=== PATIENT | male | born 1980 | race Caucasian/White ===

== ENCOUNTER 2016-09-26 22:48 | Emergency (ER) | payer OTHER ==
[2016-09-26 23:01] VITALS: BP 128/76; TEMP 102.9; BMI 43.7
[2016-09-26] MEDS ORDERED: TORADOL IM STA (23:11)
[2016-09-26] MEDS ORDERED: DECADRON 4 MG/ML SDV IM STA (23:11)
[2016-09-26 23:35] LABS: BASOPHILS % (AUTO) 0.3 % (0.0-3.0); HEMATOCRIT 40.6 % (42.0-52.0); IMMATURE GRANULOCYTE % (AUTO) 0.4 % (0.0-5.0); LYMPHOCYTES # (AUTO) 1.7 K/uL (0.60-3.4); LYMPHOCYTES % (AUTO) 10.9 (10.0-50.0); MEAN CORPUSCULAR HGB CONC 34.5 (31.8-35.4); MEAN CORPUSCULAR VOLUME 86.9 fl (80.0-94.0); MONOCYTES # (AUTO) 1.7 K/uL (0.4-2.0); MONOCYTES % (AUTO) 10.7 (0-10); NEUTROPHILS # (AUTO) 12.3 K/ul (2.0-6.9); NEUTROPHILS % (AUTO) 77.7; PLATELET COUNT 169 10^3/uL (140-440); RED BLOOD COUNT 4.67 10^6/ul (4.70-6.10); WHITE BLOOD COUNT 15.75 K/ul (4.2-10.2)
[2016-09-26 23:37] LABS: FLU INTERNAL QC INTERNAL QC VALID; RAPID FLU A NEGATIVE (NEGATIVE); RAPID FLU B NEGATIVE (NEGATIVE)
--- NOTE | 2016-09-26 23:47 | CT ---
EXAM: CT head without contrast. HISTORY: Headache. PROCEDURE: Contiguous axial CT images of the head without contrast. FINDINGS: The ventricles and basal cisterns are normal in size and configuration. No evidence of ma ss or midline shift. No intracranial hemorrhage or evidence of large vessel infarct. No extra-axia l fluid collection. There are mucous retention cysts in the paranasal sinuses. The mastoid air irvin ls are well-aerated. Impression: Negative CT of the head. Paranasal sinusitis.
[2016-09-26 23:56] LABS: ALBUMIN 3.8 g/dL (3.4-5.0); ALBUMIN/GLOBULIN RATIO 1.06; ANION GAP 12.8; BILIRUBIN,TOTAL 1.34 mg/dL (0.00-1.20); BUN/CREATININE RATIO 7.51; CALCIUM 8.9 mg/dL (8.2-10.2); CREATININE 1.33 mg/dL (0.60-1.10); POTASSIUM 3.8 mmol/L (3.5-5.1); TOTAL PROTEIN 7.4 g/dL (6.4-8.2)
--- NOTE | 2016-09-27 00:01 | DI ---
EXAM: Chest, two views, 09/26/2016 HISTORY: Cough COMPARISON: 04/23/2016 FINDINGS / IMPRESSION: Cardiomediastinal contours appear at the upper limits of normal. Basilar in terstitial opacities may represent atelectasis or pneumonitis. No focal pulmonary consolidation, ef fusion or pneumothorax.
--- NOTE | 2016-09-27 00:01 | ED.PDOC ---
General ED Provider: Dr. HALEY CARBAJAL Chief Complaint: Fever Stated Complaint: SINUS HEADACHE, SORE THROAT, SOME COUGHING, AND ALOS HAS FEVER Time Seen by Physician: 23:59 Mode of Arrival: Walk-In Information Source: Patient Primary Care Provider: SCOT PATEL Nursing and Triage Documentation Reviewed and Agree: Yes Miscellaneous Complaint Exam - Febrile Illness/Adult Complaint/Exam Symptoms Are: Still present Timing: Constant Episodes Lasting: Hours Initial Severity: Moderate Current Severity: Moderate Aggravating: Reports: None Alleviating: Reports: None Associated Signs and Symptoms: Reports: Headache, Cough, Sore throat, Chills Pseudomonas Risk Factors: Reports: None Serious Bacterial Infection Risk Factors: Reports: None Current Antibiotic Use: No Differential Diagnoses: Pneumonia, Sepsis, Viremia Review of Systems - Review Of Systems Constitutional: Reports: Fever, Malaise Eyes: Reports: No symptoms Ears, Nose, Mouth, Throat: Reports: Nose discharge, Throat pain Respiratory: Reports: Cough Cardiac: Reports: No symptoms GI: Reports: No symptoms : Reports: No symptoms Musculoskeletal: Reports: No symptoms Skin: Reports: No symptoms Neurological: Reports: No symptoms Endocrine: Reports: No symptoms Hematologic/Lymphatic: Reports: No symptoms All Other Systems: Reviewed and Negative Past Medical History - Past Medical History Previously Healthy: Yes Endocrine: Reports: None Cardiovascular: Reports: None Respiratory: Reports: None Hematological: Reports: None Gastrointestinal: Reports: None Genitourinary: Reports: None Neuro/Psych: Reports: None Musculoskeletal: Reports: None Cancer: Reports: None - Surgical History General Surgical History: Reports: Appendectomy, Cholecystectomy, Orthopedic ( rt shoulder) - Family History Family History: Reports: Unknown - Social History Smoking Status: Never smoker Hx Substance Use: No Alcohol Screening: Occasionally - Immunizations Tetanus Shot up to Date: Yes Physical Exam - Physical Exam Appearance: Ill-appearing, Obese Eyes: JUANY, EOMI, Conjunctiva clear ENT: Erythema, Exudate Respiratory: Airway patent, Breath sounds clear, Breath sounds equal, Respirations nonlabored Cardiovascular: RRR, Pulses normal, No rub, No murmur GI/: Soft, Nontender, No masses, Bowel sounds normal, No Organomegaly Musculoskeletal: Normal strength, ROM intact, No edema, No calf tenderness Skin: Warm, Dry, Normal color Neurological: Sensation intact, Motor intact, Reflexes intact, Cranial nerves intact, Alert, Oriented Psychiatric: Affect appropriate, Mood appropriate Interpretation - Radiology Interpretation Radiology Interpretation By: ED Physician Radiology Results: Positive Critical Care Note - Critical Care Note Total Time (mins): 0 Course - Course Hematology/Chemistry: 09/26/16 23:30 09/26/16 23:30 Orders, Labs, Meds: Lab Review 09/26/16 09/26/16 23:10 23:30 WBC 15.75 H RBC 4.67 L Hgb 14.0 Hct 40.6 L MCV 86.9 MCH 30.0 MCHC 34.5 RDW Coeff of [place] 13.2 Plt Count 169 Immature Gran % (Auto) 0.4 Neut % (Auto) 77.7 Lymph % (Auto) 10.9 [place] % (Auto) 10.7 H Eos % (Auto) 0.0 Baso % (Auto) 0.3 Immature Gran # (Auto) 0.1 Neut # 12.3 H Lymph # 1.7 [place] # 1.7 Eos # 0.0 Baso # 0.0 Sodium 135 L Potassium 3.8 Chloride 101 Carbon Dioxide 25 Anion Gap 12.8 BUN 10 Creatinine 1.33 H Estimated GFR (MDRD) 62.00 BUN/Creatinine Ratio 7.51 Glucose 109 H Lactic Acid 9.3 Calcium 8.9 Total Bilirubin 1.34 H AST 14 L ALT 23 Alkaline Phosphatase 67 Total Protein 7.4 Albumin 3.8 Globulin 3.6 Albumin/Globulin Ratio 1.06 Influenza A (Rapid) Negative Influenza B (Rapid) Negative Orders Category Date Time Status CBC W/ AUTO DIFF Stat LAB 09/26/16 23:30 Completed COMPREHENSIVE METABOLIC PANEL Stat LAB 09/26/16 23:30 Completed LACTIC ACID Stat LAB 09/26/16 23:30 Completed MOLECULAR GROUP A STREP Stat LAB 09/26/16 23:10 Results RAPID FLU A/B Stat LAB 09/26/16 23:10 Completed STREP SCREEN Stat LAB 09/26/16 23:10 Results Dexamethasone 4 mg/ml Inj [Decadron 4 mg/ml Sdv] MEDS 09/26/16 23:11 Discontinued 4 mg IM ONCE STA Ketorolac Tromethamine [Toradol] MEDS 09/26/16 23:11 Discontinued 60 mg IM ONCE STA CT HEAD W/O CONTRAST Stat RADS 09/26/16 23:11 Completed CXR [CHEST, 2 VIEWS PA & LAT] Stat RADS 09/26/16 23:11 Completed Medications Discontinued Medications Generic Name Dose Route Start Last Admin Trade Name Anthony PRN Reason Stop Dose Admin Dexamethasone Sodium Phosphate 4 mg 09/26/16 23:11 09/26/16 23:31 Decadron 4 Mg/Ml Sdv IM 09/26/16 23:12 4 mg ONCE STA Administration Ketorolac Tromethamine 60 mg 09/26/16 23:11 09/26/16 23:31 Toradol IM 09/26/16 23:12 60 mg ONCE STA Administration Vital Signs: Temp Pulse Resp BP Pulse Ox 09/26/16 22:51 102.9 F H 112 H 20 128/76 96 Departure - Departure Time of Disposition: 00:26 Disposition: HOME SELF-CARE Discharge Problem: Pneumonitis Instructions: Pneumonitis (ED) Condition: Stable Pt referred to PMD for follow-up: Yes Additional Instructions: INCREASE HYDRATION TYLENOL PRN TAKE MEDICATIONS WITH FOOD Prescriptions: Amoxicillin/Potassium Clav [Augmentin 875-125 mg Tab] 1 tab PO Q12HR #20 tablet Prednisone 10 mg PO BIDWM #14 tablet Allergies/Adverse Reactions: Allergies cephalexin monohydrate [From Keflex] Adverse Reaction (Verified 09/26/16 23:00) Home Medications: Ambulatory Orders Ibuprofen 600 mg PO Q6H PRN 02/11/16 Amoxicillin/Potassium Clav [Augmentin 875-125 mg Tab] 1 tab PO Q12HR #20 tablet 09/27/16 Prednisone 10 mg PO BIDWM #14 tablet 09/27/16 Disposition Discussed With: Patient, Family
[2016-09-27] MEDS ORDERED: AUGMENTIN 875-125 MG TAB PO STA (00:23)
== END 2016-09-27 00:42 | disposition home or self-care (01) ==
LOC: ED 22:48
DX: J18.9 Pneumonia, unspecified organism (principal)
CPT/HCPCS: 36415; 80053; 83605; 85025; 87651; 87804; 87880; 96372; 99283

== ENCOUNTER 2017-04-03 16:40 | Outpatient (CLI) | payer OTHER ==
[2017-04-03 17:18] LABS: FLU INTERNAL QC INTERNAL QC VALID; RAPID FLU A NEGATIVE (NEGATIVE); RAPID FLU B NEGATIVE (NEGATIVE)
== END 2017-04-03 16:41 | disposition home or self-care (01) ==
LOC: LAB 16:40
PROVIDERS: ATTEND Emergency Medicine
DX: J06.9 Acute upper respiratory infection, unspecified (principal)
CPT/HCPCS: 87651; 87804; 87880

== ENCOUNTER 2018-11-12 09:37 | Outpatient (CLI) | END 2018-11-12 09:38 | disposition home or self-care (01) | LOC: RHC-LAB 09:37 → FCC-LAB 09:38 | PROVIDERS: ATTEND Nurse Practitioner Family | DX: E78.00 Pure hypercholesterolemia, unspecified (principal); I10 Essential (primary) hypertension; E66.9 Obesity, unspecified | CPT/HCPCS: 36415; 80053; 80061; 85025 ==